=== PATIENT | male | born 1995 | race Caucasian/White ===

== ENCOUNTER 2018-06-26 14:15 | Emergency (ER) | payer OTHER ==
[~2018-06-26] VITALS: Ht 180.3 cm; Wt 64.3 kg
[2018-06-26 14:46] VITALS: BP 118/59
[2018-06-26] MEDS ORDERED: LIDOCAINE-MPF 1%, 2ML ONE (16:12)
[2018-06-26] MEDS ORDERED: BACITRACIN ZINC OINT 500U/GM, 0.9 GM ONE (17:02)
== END 2018-06-26 17:14 | disposition home or self-care (01) ==
LOC: ED 15:00
DX: S01.112A Laceration without foreign body of left eyelid and periocular area, initial encounter (principal); V00.131A Fall from skateboard, initial encounter; Y93.21 Activity, ice skating; Y92.410 Unspecified street and highway as the place of occurrence of the external cause; Y99.8 Other external cause status
CPT/HCPCS: 12051; 70450; 70486; 99284

== ENCOUNTER 2018-07-05 12:34 | Emergency (ER) | payer OTHER ==
[~2018-07-05] VITALS: Ht 180.3 cm; Wt 67.4 kg
[2018-07-05 12:48] VITALS: BP 115/73
[2018-07-05] MEDS ORDERED: BACITRACIN ZINC OINT 500U/GM, 0.9 GM ONE (13:25)
== END 2018-07-05 13:30 | disposition home or self-care (01) ==
LOC: ED 13:15
DX: S01.112D Laceration without foreign body of left eyelid and periocular area, subsequent encounter (principal)
CPT/HCPCS: 99281